=== PATIENT | male | born 1995 | race Caucasian/White ===

== ENCOUNTER 2018-04-26 18:42 | Emergency (ER) | payer BC ==
[~2018-04-26] VITALS: Ht 177.8 cm; Wt 64.2 kg
[2018-04-26] MEDS ORDERED: LORazepam 2 MG/ML, 1ML ONE (18:54)
[2018-04-26] MEDS ORDERED: LORazepam 2 MG/ML, 1ML IVPush ONE (19:00)
[2018-04-26] MEDS ORDERED: PLEASE ENTER ALLERGIES MC SCH (19:00)
[2018-04-26] MEDS ORDERED: PLEASE ENTER HEIGHT AND WEIGHT MC SCH (19:00)
[2018-04-26 19:14] LABS: BASOPHILS # (AUTO) 0.03 x10^3/uL (0-0.3); BASOPHILS % (AUTO) 0 % (0-1); EOSINOPHILS % (AUTO) 2 % (1-7); LYMPHOCYTES # (AUTO) 1.41 x10^3/uL (1-6.1); LYMPHOCYTES % (AUTO) 20 % (22-44); MD NO; MEAN CORPUSCULAR HEMOGLOBIN 30.6 pg (27.5-34.5); MEAN CORPUSCULAR HGB CONC 34.1 g/dL (33.2-36.2); MEAN CORPUSCULAR VOLUME 89.8 fL (81-97); MEAN PLATELET VOLUME 8.7 fL (7.4-10.4); MONOCYTES # (AUTO) 0.74 x10^3/uL (0-1.4); MONOCYTES % (AUTO) 11 % (2-9); NEUTROPHILS # (AUTO) 4.65 x10^3/uL (1.8-8.0); NEUTROPHILS % (AUTO) 67 % (42-75); PLATELET COUNT 357 x10^3/uL (130-400); RED BLOOD COUNT 4.97 x10^6/uL (4.38-5.82); RED CELL DISTRIBUTION WIDTH 12.9 % (9.4-14.8)
[2018-04-26 19:19] LABS: ALANINE AMINOTRANSFERASE 19 U/L (12-78); ALBUMIN 4.4 g/dL (3.4-5.0); ANION GAP 11 mmol/L (5-15); CALCIUM 9.5 mg/dL (8.5-10.1); CHLORIDE 109 mmol/L (98-107); CREATININE 1.06 mg/dL (0.7-1.3)
[2018-04-26 19:21] LABS: ACETAMINOPHEN 7 mcg/mL (10-30); ALKALINE PHOSPHATASE 58 U/L (45-117); BILIRUBIN,TOTAL 1.1 mg/dL (0.2-1.0); TOTAL PROTEIN 8.4 g/dL (6.4-8.2)
[2018-04-26 20:48] LABS: MICROSCOPIC NOT IND
[2018-04-26 20:52] LABS: CULTURE INDICATED? NO
[2018-04-26 21:19] LABS: AMPHETAMINE SCREEN, URINE Negative (Negative); BARBITURATE SCREEN, URINE Negative (Negative); BENZODIAZEPINE SCREEN, URINE Positive (Negative); CANNABINOID SCREEN, URINE Negative (Negative); COCAINE SCREEN, URINE Negative (Negative); METHADONE SCREEN, URINE Negative (Negative); OPIATE SCREEN, URINE Negative (Negative)
[2018-04-26 22:24] VITALS: BP 112/76
== END 2018-04-26 22:43 | disposition home or self-care (01) ==
LOC: ED 20:18
DX: R41.82 Altered mental status, unspecified (principal); R40.1 Stupor
CPT/HCPCS: 36415; 70450; 71045; 80053; 80307; 80329; 81003; 85025; 93005; 96374; 99285; J2060; G0480